=== PATIENT | male | born 1940 | race African-American/Black ===

== ENCOUNTER 2024-04-13 13:03 | Emergency (ER) | payer MEDICARE, MEDICAID ==
[~2024-04-13] VITALS: Ht 182.9 cm; Wt 80.0 kg
[2024-04-13 13:06] VITALS: O2SAT 98
[2024-04-13] MEDS: ASPIRIN 81MG TABLET PO ONE (13:39)
[2024-04-13] MEDS: NITROGLYCERIN 0.4MG TABLET SL SL PRN (13:39)
[2024-04-13 14:24] LABS: BASOPHILS % 0.6 % (0.0-2.0); HEMATOCRIT. 42.1 % (42.0-52.0); HEMOGLOBIN. 13.7 g/dL (14.0-18.0); MEAN CORPUSCULAR HEMOGLOBIN 30.9 pg (28.0-32.0); MEAN CORPUSCULAR HGB CONC 32.6 g/dL (31.0-37.0); MEAN CORPUSCULAR VOLUME 94.8 fL (80.0-94.0); MEAN PLATELET VOLUME 8.5 fl (7.4-10.4); MONOCYTES % 13.9 % (2.0-8.0); NEUTROPHILS % 47.5 % (40.0-76.0); PLATELET 147 x1000/uL (130-400); RED BLOOD CELL COUNT 4.44 mill/uL (4.7-6.1); RED CELL DISTRIBUTION WIDTH 14.2 % (11.6-14.6); WHITE BLOOD COUNT 2.9 x1000/uL (4.5-11.0)
[2024-04-13 14:40] LABS: CHLORIDE 107 mEq/L (98-107); POTASSIUM 4.9 mEq/L (3.5-5.1); SODIUM 139 mEq/L (136-145)
[2024-04-13 14:41] LABS: CARBON DIOXIDE 26 mEq/L (21-32)
[2024-04-13 14:42] LABS: CALCIUM 9.3 mg/dL (8.7-10.4)
[2024-04-13 14:46] LABS: CREATININE 0.9 mg/dL (0.6-1.3); GLUCOSE 79 mg/dL (70-105); UREA NITROGEN BLOOD 7 mg/dL (9-23)
[2024-04-13 14:47] LABS: TROPONIN I HIGH SENSITIVITY 39 ng/L (3.0-53)
[2024-04-13 15:22] VITALS: BP 110/60; PULSE 60; RESP 16; TEMP 98.4
== END 2024-04-13 15:38 | disposition home or self-care (01) ==
LOC: ER 13:38
DX: R07.9 Chest pain, unspecified (principal); I10 Essential (primary) hypertension; Z98.890 Other specified postprocedural states
CPT/HCPCS: 36415; 71045; 80048; 83880; 84484; 85025; 93005; 99285

== ENCOUNTER 2025-03-09 20:57 | Emergency (ER) | payer OTHER, MEDICAID ==
[~2025-03-09] VITALS: Ht 175.3 cm; Wt 84.0 kg
[2025-03-09 21:10] VITALS: BP 109/73; PULSE 75; RESP 14; TEMP 37.6; O2SAT 98
[2025-03-09] MEDS ORDERED: ACET-2708 MT (22:31)
[2025-03-09 22:43] VITALS: TEMP 99.7
[2025-03-09] MEDS: ACETAMINOPHEN 325MG TABLET PO ONE (22:43)
== END 2025-03-09 22:44 | disposition home or self-care (01) ==
LOC: ER 20:57
DX: G89.29 Other chronic pain (principal); M79.672 Pain in left foot; M25.562 Pain in left knee; I10 Essential (primary) hypertension; Z68.26 Body mass index [BMI] 26.0-26.9, adult; Z79.899 Other long term (current) drug therapy
CPT/HCPCS: 99283